=== PATIENT | male | born 1955 | race Caucasian/White ===

== ENCOUNTER 2017-04-11 15:36 | Emergency (ER) | payer MEDICARE ==
[~2017-04-11] VITALS: Ht 182.9 cm; Wt 86.2 kg
[2017-04-11 16:16] VITALS: BP 142/104
== END 2017-04-11 20:10 | disposition left against medical advice (07) ==
LOC: ER 15:36
DX: M25.532 Pain in left wrist (principal); Z53.21 Procedure and treatment not carried out due to patient leaving prior to being seen by health care provider
CPT/HCPCS: 71101; 73130

== ENCOUNTER 2017-04-12 10:49 | Emergency (ER) | payer MEDICARE ==
[~2017-04-12] VITALS: Ht 182.9 cm; Wt 85.7 kg
[2017-04-12 12:14] VITALS: BP 138/89
[2017-04-12] MEDS ORDERED: HYDROcodone-ACET 5/325MG TAB PO ONE (13:00)
[2017-04-12] MEDS ORDERED: KETOROLAC TROMETH 60MG/2ML VIAL IM ONE (13:00)
== END 2017-04-12 13:47 | disposition home or self-care (01) ==
LOC: ER 10:49
DX: S22.41XA Multiple fractures of ribs, right side, initial encounter for closed fracture (principal); S52.91XA Unspecified fracture of right forearm, initial encounter for closed fracture; Z88.0 Allergy status to penicillin; Z90.49 Acquired absence of other specified parts of digestive tract; V23.4XXA Motorcycle driver injured in collision with car, pick-up truck or van in traffic accident, initial encounter; Y93.89 Activity, other specified; Y99.8 Other external cause status; Y92.410 Unspecified street and highway as the place of occurrence of the external cause
CPT/HCPCS: 29125; 73110; 96372; 99284; J1885

== ENCOUNTER 2020-02-19 12:42 | Emergency (ER) | payer OTHER ==
[2020-02-19] MEDS ORDERED: CALCIUM CHLOR(10%) 100MG/ML 10ML SYRINGE IV ONE (12:43)
[2020-02-19] MEDS ORDERED: DOPamine 1600mCg/ml 400MG/250ml NSorD5 KIT/BAG IV ONE (12:43)
[2020-02-19] MEDS ORDERED: EPINEPHrine HCL 1 MG/10 ML SYRG IV ONE (12:43)
[2020-02-19] MEDS ORDERED: NOREPINEPHRINE 8 MG/250ML KIT 250 ML IV ONE (12:47)
[2020-02-19 13:00] VITALS: BP 102/71
[2020-02-19] MEDS ORDERED: MIDAZOLAM DRIP 50 mg/50mL 50 ML IV SCH (13:00)
[2020-02-19] MEDS ORDERED: DOPamine 1600MCG/ML D5W 250 ML IV ONE (13:00)
== END 2020-02-19 19:47 ==
LOC: EDBD 12:42 → EDUNIT# 12:42 → ER 12:42
DX: I46.9 Cardiac arrest, cause unspecified (principal); R41.82 Altered mental status, unspecified; I10 Essential (primary) hypertension; Z88.0 Allergy status to penicillin
CPT/HCPCS: 31500; 36600; 82805; 92950; 99285; J0171; J1265; 94002